=== PATIENT | female | born 1975 | race Caucasian/White ===

== ENCOUNTER 2017-06-26 14:27 | Emergency (ER) | payer OTHER ==
[~2017-06-26] VITALS: Ht 172.7 cm; Wt 100.0 kg
[~2017-06-26 14:27] MED LIST: ADVAIR DISK1 INH; ALBUTEROL SUL0.083 % IN; AMOXICILLIN875 MG PO; AUGMENTIN500TAB PO; AUGMENTIN875TAB OR; BUSPIRONE15 MG PO; CITALOPRAM20 MG PO; DEPO-MEDROL80 MG/ML IM; FLEXERIL PO; FLONASE NASAL50 MCG; FLOVENT HFA220 MCG IN; MEDDOSEPAK PO; NEBULIZE1; PREDNISONE10 MG PO; PREDNISONE20 MG PO; PROAIR HFA IN; SINGULAIR PO; ULTRAM50 M1 PO; VENLAFAXINE HCL75 M1 PO; VENLAFAXINE37.5 M2 PO; XANAX0.25 MG PO; ZITHROMAX250 MG PO
[2017-06-26 15:24] LABS: HEMATOCRIT 39.7 % (37.0-47.0); HEMOGLOBIN 12.9 g/dl (12.0-16.0); IMMATURE GRANULOCYTES 0.3 % (0.0-1.0); MEAN CELL VOLUME 84.1 fL CALC (80.0-100.0); MEAN CORPUSCULAR HGB 27.3 pG CALC (26.0-32.0); MEAN CORPUSCULAR HGB CONC 32.5 g/L CALC (32.0-36.0); NEUT# 7.48 thou/uL (2.00-7.15); RED BLOOD COUNT 4.72 mill/uL (4.20-5.60); RED CELL DISTRI WIDTH 14.2 % (11.5-15.5)
[2017-06-26 15:41] LABS: ALBUMIN 4.2 g/dL (3.2-5.0); ALKALINE PHOSPHATASE 90 u/l (38-126); ANION GAP 16 (6-22 (CALC)); BILIRUBIN, TOTAL 0.6 mg/dL (0.0-1.4); BUN 14 mg/dL (7-17); BUN/CREATININE RATIO 19 (12-20 (CALC)); CALCIUM 9.5 mg/dL (8.4-10.2); CARBON DIOXIDE 18 mmol/l (22-30); CHLORIDE 111 mmol/l (95-108); CREATININE 0.8 mg/dL (0.5-1.0); GFR > 60 ML/MIN (>=60 (CALC)); GFR FOR AFR.AMER. > 60 ML/MIN (>=60 (CALC)); GLUCOSE 106 mg/dL (65-105); INFLUENZA A NONE DETECTED (NONE DETECT); INFLUENZA B NONE DETECTED (NONE DETECT); POTASSIUM 4.6 mmol/l (3.5-5.1); SGOT/AST 30 u/l (14-36); SGPT/ALT 25 u/l (9-52); SODIUM 140 mmol/l (137-146); TOTAL PROTEIN 7.2 g/dL (6.3-8.2)
[2017-06-26] MEDS ORDERED: CEPHALEXIN500 MG PO (16:04)
[2017-06-26] MEDS ORDERED: ROBITUSSIN AC10 ML PO (16:04)
[2017-06-26] MEDS ORDERED: MEDDOSEPAK PO (16:04)
[2017-06-26 16:20] VITALS: BP 121/84
== END 2017-06-26 16:20 | disposition home or self-care (01) | DRG 203 ==
LOC: ED 14:27
PROVIDERS: Emergency Medicine
DX: J45.901 Unspecified asthma with (acute) exacerbation (principal); J06.9 Acute upper respiratory infection, unspecified; F17.210 Nicotine dependence, cigarettes, uncomplicated

== ENCOUNTER → 2018-08-18 | Outpatient (REF) | payer OTHER ==
[~2018-08-18] MED LIST changes: +CEPHALEXIN500 MG PO; +ROBITUSSIN AC10 ML PO
== END | disposition home or self-care (01) | DRG 641 ==
LOC: LAB 08:24
PROVIDERS: ATTEND Nurse Practitioner Family
DX: E66.09 Other obesity due to excess calories (principal); F32.1 Major depressive disorder, single episode, moderate; F41.9 Anxiety disorder, unspecified; T78.40XD Allergy, unspecified, subsequent encounter